=== PATIENT | female | born 1965 | race American Indian/Alaskan Native ===

== ENCOUNTER 2020-05-11 12:13 | Emergency (ER) | payer MEDICAID, OTHER ==
--- NOTE | 2020-05-11 13:23 | EDM.PDOC ---
ED HPI GENERAL MEDICAL PROBLEM - General Chief Complaint: Respiratory Problem Stated Complaint: BREATHING PROBLEMS Time Seen by Provider: 05/11/20 12:36 Source of Information: Reports: Patient History Limitations: Reports: No Limitations - History of Present Illness INITIAL COMMENTS - FREE TEXT/NARRATIVE: 54-year-old female with a severe cough followed by sudden left-sided chest pain that is worse than patient has been experiencing for several weeks after a fall on the same side. Patient endorses thick yellowish mucus and cough. Denies fever, chills, nausea, vomiting or diarrhea. Also denies loss of sense of taste or smell. Patient had a reportedly negative coronavirus test obtained 1 week of Tuesday. Patient endorses a fall on her left side approximately 3 weeks ago and has had pain since that time. Patient endorses x-rays at that time which were reportedly unremarkable. Patient is concerned about the possibility of pneumonia. Patient denies any other symptoms at this time. Including no dysuria, diarrhea or abdominal pain. 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: Musculoskeletal History: Reports: Arthritis Psychiatric History: Reports: Anxiety, Depression - Past Surgical History GI Surgical History: Reports: Other (See Below) Other GI Surgeries/Procedures: gallstone surgery Social & Family History - Tobacco Use Tobacco Use Status *Q: Current Every Day Tobacco User Years of Tobacco use: 20 Packs/Tins Daily: 0.5 Second Hand Smoke Exposure: Yes - Caffeine Use Caffeine Use: Reports: Soda Other Caffeine Use: 2 sodas per day, tea daily - Recreational Drug Use Recreational Drug Use: No ED ROS GENERAL - Review of Systems Review Of Systems: Comprehensive ROS is negative, except as noted in HPI. ED EXAM, GENERAL - Physical Exam Exam: See Below Exam Limited By: No Limitations General Appearance: Alert, WD/WN, No Apparent Distress Neck: Supple, Non-Tender Respiratory/Chest: No Respiratory Distress, Lungs Clear, Normal Breath Sounds, No Accessory Muscle Use, Other (No hypoxia) Cardiovascular: Normal Peripheral Pulses, Regular Rate, Rhythm, No Edema Peripheral Pulses: 2+: Radial (L), Radial (R) GI/Abdominal: Soft, Non-Tender, No Distention Back Exam: Full Range of Motion Extremities: Normal Range of Motion, Non-Tender, No Pedal Edema, Normal Capillary Refill Neurological: Alert, Oriented, Normal Gait, No Motor/Sensory Deficits Psychiatric: Normal Affect, Normal Mood Skin Exam: Warm, Dry, Intact, No Rash Course - Vital Signs Last Recorded V/S: Last Vital Signs Temp 96.0 F L 05/11/20 12:38 Pulse 91 05/11/20 12:38 Resp 22 H 05/11/20 12:38 BP 155/92 H 05/11/20 12:38 Pulse Ox 94 L 05/11/20 12:38 - Orders/Labs/Meds Orders: Active Orders 24 hr Category Date Time Status Chest 2V [CR] Stat Exams 05/11/20 13:00 Taken - Radiology Interpretation Free Text/Narrative:: 2 views of the chest were obtained. No retrocardiac infiltrate identified. There is blunting of the costo cardiac angle likely representing small effusion or infiltrate. Departure - Departure Time of Disposition: 13:30 Disposition: Home, Self-Care 01 Condition: Good Clinical Impression: Chest wall pain, Lower resp. tract infection - Discharge Information Instructions: Chest Wall Pain, Community-Acquired Pneumonia, Adult Referrals: Helena Brooks MD [Primary Care Provider] - Forms: ED Department Discharge Additional Instructions: 1. Take medications as prescribed. Complete entire course of antibiotics. 2. Should take deep breaths and cough as much as possible to improve respiratory function. 3. Schedule a follow-up appointment closely with your primary care doctor in the next 5 to 7 days. 4. Seek immediate medical attention with any rapidly worsening symptoms or concerns. Sepsis Event Note (ED) - Evaluation Sepsis Screening Result: No Definite Risk - Focused Exam Vital Signs: Vital Signs Temp Pulse Resp BP Pulse Ox 05/11/20 12:38 96.0 F L 91 22 H 155/92 H 94 L 05/11/20 12:35 96.0 F L 91 22 H 155/92 H 94 L - My Orders Last 24 Hours: My Active Orders 05/11/20 13:00 Chest 2V [CR] Stat - Assessment/Plan Last 24 Hours: My Active Orders 05/11/20 13:00 Chest 2V [CR] Stat Assessment:: 54-year-old female with left sided chest wall pain and a cough productive of mucus approximately 3 weeks after a fall in the same side. There is some blunting of the costo cardiac angle with a possible infiltrate or small effusion. This is the location of the patient's pain and with her cough and dark mucus following an injury to the chest at that site I would suspect possible pneumonia. Will start azithromycin 5-day course of antibiotics. I am prescribing a small amount of Percocet due to the severity of pain. Patient is hemodynamically stable. Afebrile. No hypoxia on room air. Patient is appropriate for outpatient management at this time. I advised her to contact her primary care doctor tomorrow for close follow through either in person or with telehealth. As previously noted patient was Covid positive as of 1 week ago. If new symptoms develop she would warrant retesting. Patient advised to seek immediate medical attention with any rapidly worsening symptoms or concerns. Discharge home. Plan: 1. Take medications as prescribed and complete antibiotic course in its entirety. 2. Get adequate rest and make sure to adequately hydrate orally with water. 3. Make a scalp appointment with your primary care doctor in the next 3 to 5 days either in person or via telehealth. 4. Seek immediate medical attention with any rapidly worsening symptoms or concerns.
--- NOTE | 2020-05-12 09:56 | CR ---
CHEST: 2 view CLINICAL HISTORY:Left-sided chest pain and cough COMPARISON:2015 FINDINGS: Heart size and pulmonary vascularity are normal. There is diffuse bilateral predominantly interstitial infiltrate with some patchy opacities in both lower lobes. IMPRESSION: Patchy bilateral predominantly interstitial infiltrates suggest pneumonitis
== END 2020-05-11 13:45 | disposition home or self-care (01) ==
LOC: JP.ED 12:13
DX: R07.89 Other chest pain (principal); J22 Unspecified acute lower respiratory infection; F17.210 Nicotine dependence, cigarettes, uncomplicated
CPT/HCPCS: 71046; 71046-26; 99284-25